=== PATIENT | male | born 1960 ===

== ENCOUNTER 2019-09-27 10:16 | Outpatient (CLI) | payer MEDICARE ==
--- NOTE | 2019-09-27 11:56 | Ultrasound Report ---
ULTRASOUND ABDOMEN, COMPLETE INDICATION: R10.9 UNSPECIFIED ABDOMINAL PAIN COMPARISON: None. FINDINGS: Pancreas: Normal. Abdominal Aorta: Normal. IVC: Normal. Liver: Hepatic steatosis. Gallbladder: Normal. Bile ducts: Normal. Common Bile Duct measures 4-5 mm. Right Kidney: No significant abnormality. Left Kidney: No significant abnormality. Spleen: Normal. Free fluid: None. Additional Findings: None. IMPRESSION: 1. No acute findings. 2. Hepatic steatosis. Signer Name: Michael Saleh MD Signed: 09/27/2019 11:52 AM Workstation Name: [id number]
== END 2019-09-27 10:17 | disposition home or self-care (01) ==
LOC: US 10:16
PROVIDERS: ATTEND Internal Medicine
DX: K76.0 Fatty (change of) liver, not elsewhere classified (principal)
CPT/HCPCS: 76700